=== PATIENT | female | born 1960 | race Caucasian/White ===

== ENCOUNTER 2019-03-14 08:27 | Inpatient (IN) ==
[2019-03-14] MEDS ORDERED: DUONEB (A & A) ONE (09:30)
[2019-03-14] MEDS: DUONEB (A & A) INH ONE (09:30)
--- NOTE | 2019-03-14 09:31 | PROVIDER DOCUMENTATION ---
HPI-Respiratory General - General Chief Complaint: Cough Stated Complaint: SOB / FLU SX Time Seen by Provider: 03/14/19 09:14 Source: patient Allergies/Adverse Reactions: Patient Allergies Allergy/AdvReac Type Severity Reaction Status Date / Time No Known Allergies Allergy Verified 03/14/19 10:05 Home Medications: Home Medication List Medication Instructions Recorded Confirmed Last Taken Type Alprazolam 0.5 mg PO QHS 03/14/19 03/14/19 03/13/19 History Losartan [Cozaar] 50 mg PO DAILY 03/14/19 03/14/19 03/14/19 History - History of Present Illness-Resp Nature of Presenting Problem: [id number] presents to the ER with c/o SOB, wheezing, and fever since yesterday. She is a PPD smoker. She reports a fever of 102.6 yesterday. Onset/Duration: reports: 24 hours ago Associated Symptoms: reports: cough, fever/chills, heart racing, shortness of breath. denies: chest pain/soreness Similar Symptoms Previously?: No Recently seen or treated by another doctor?: No Review of Systems - Adult - REVIEW OF SYSTEMS - ADULT Constitutional: reports: no symptoms reported, see HPI. denies: chills, fever Eyes: reports: no symptoms reported Ears, Nose, Mouth & Throat: reports: no symptoms reported Cardiovascular: reports: no symptoms reported. denies: chest pain, palpitations Respiratory: reports: see HPI, cough, dyspnea on exertion, shortness of breath, wheezing Gastrointestinal: reports: no symptoms reported Genitourinary: reports: no symptoms reported Musculoskeletal: reports: no symptoms reported Integumentary: reports: no symptoms reported Neurological: reports: no symptoms reported Psychiatric: reports: no symptoms reported Endocrine: reports: no symptoms reported Hematologic/Lymphatic: reports: no symptoms reported Allergic/Immunologic: reports: no symptoms reported All Other Systems: Reviewed and Negative Past History - Adult - PAST MEDICAL HISTORY-ADULT Review of Records: reports: Old Records Reviewed, Nursing Assessment Review, Medications Reviewed, Social history reviewed & non-contributory. Major Childhood Illnesses: reports: denies history Cardiovascular: reports: HTN, hyperlipidemia Respiratory: reports: denies history Gastrointestinal: reports: denies history Obstetrical/Gynecological: reports: denies history Genitourinary: reports: denies history Musculoskeletal: reports: denies history Neurological: reports: denies history Endocrine/Immune: reports: denies history Other Conditions: reports: denies history - IMMUNIZATION STATUS Childhood Immunizations: See Nurse Assessment Flu Vaccine: See Nurse Assessment - FAMILY HISTORY Family History: reviewed, not pertinent - SOCIAL HISTORY Smoking: cigarettes, greater than 1 pack/day Provider spent 3-5 mins advising pt. on dangers of tobacco.: Discussed manners to quit use, and f/u contacts for add'l counseling. Living Situation: family Physical Exam-General - CONSTITUTIONAL General Appearance: alert, moderate distress - EYES Eyes: PERRL/EOMI, pink conjunctivae - HEAD, EARS, NOSE, MOUTH & THROAT HENMT: moist mucous membranes, TMs normal - NECK Neck: full range of motion, supple - RESPIRATORY Respiratory: respiratory distress (tachypnea), decreased breath sounds, wheezing - CARDIOVASCULAR Cardiovascular: normal peripheral pulses, regular rate, rhythm, no edema - GASTROINTESTINAL (ABDOMEN) Abdominal Exam: non tender, soft - MUSCULOSKELETAL Back Exam: normal inspection Peripheral Pulses: radial (R): 2+, radial (L): 2+, dorsalis-pedis (R): 2+, dorsalis-pedis (L): 2+ - SKIN Integumentary: warm/dry - NEUROLOGIC Neurologic: grossly normal - PSYCHIATRIC Psych/Mental Status: oriented x 3 - HEART Score HEART Score: History: Slightly Suspicious HEART Score: ECG: Normal HEART Score: Age: < or = 45 Years HEART Score: Risk Factors for Atherosclerotic Disease: 1 or 2 Risk Factors HEART Score: Troponin: < or = Normal Limit Total HEART Score:: 1 Progress - PLAN OF CARE/RESULTS Progress/Plan/Lab Results: Vital Signs - 8 hr 03/14/19 08:30 03/14/19 09:31 Temperature 99.4 F Pulse Rate 126 H 121 H Respiratory Rate 28 H 22 Blood Pressure 161/105 O2 Sat by Pulse Oximetry 96 95 Laboratory Results - last 24 hr 03/14/19 03/14/19 03/14/19 09:10 09:10 09:10 WBC 31.91 H RBC 4.94 Hgb 14.8 Hct 44.1 MCV 89.3 MCH 30.0 MCHC 33.6 RDW Std Deviation 12.3 Plt Count 277 MPV 9.9 Immature Gran % (Auto) 0.8 H Neut % (Auto) 88.0 H Lymph % (Auto) 2.2 L [place] % (Auto) 7.8 Eos % (Auto) 1.1 Baso % (Auto) 0.1 Immature Gran # (Auto) 0.24 H Neut # (Auto) 28.09 H Lymph # (Auto) 0.70 L [place] # (Auto) 2.49 H Eos # (Auto) 0.35 Baso # (Auto) 0.04 PT 14.4 INR 1.06 PTT (Actin FS) 27.8 Sodium 138 Potassium 4.0 Chloride 103 Carbon Dioxide 22 L Anion Gap 13 BUN 11 Creatinine 0.5 Estimated GFR/1.73 m2 > 60 BUN/Creatinine Ratio 22 Glucose 141 H Calculated Osmolality 277 Calcium 9.2 Total Bilirubin 0.70 AST 18 ALT 16 Alkaline Phosphatase 106 H Creatine Kinase 77 Troponin T Total Protein 7.2 Albumin 4.3 Globulin 3.0 Albumin/Globulin Ratio 1.0 Plasma Lactate Urine Color Urine Clarity Urine pH Ur Specific [place] Urine Protein Urine Ketones Urine Blood Urine Nitrite Urine Bilirubin Urine Urobilinogen Urine WBC Urine Glucose 03/14/19 03/14/19 03/14/19 09:10 09:10 09:10 WBC RBC Hgb Hct MCV MCH MCHC RDW Std Deviation Plt Count MPV Immature Gran % (Auto) Neut % (Auto) Lymph % (Auto) [place] % (Auto) Eos % (Auto) Baso % (Auto) Immature Gran # (Auto) Neut # (Auto) Lymph # (Auto) [place] # (Auto) Eos # (Auto) Baso # (Auto) PT INR PTT (Actin FS) Sodium Potassium Chloride Carbon Dioxide Anion Gap BUN Creatinine Estimated GFR/1.73 m2 BUN/Creatinine Ratio Glucose Calculated Osmolality Calcium Total Bilirubin AST ALT Alkaline Phosphatase Creatine Kinase Troponin T < 0.010 Total Protein Albumin Globulin Albumin/Globulin Ratio Plasma Lactate 1.3 Urine Color PINK Urine Clarity VERY CLOUDY A Urine pH 6.5 Ur Specific [place] 1.020 Urine Protein 2+(100 mg/dL) A Urine Ketones 1+(Small) A Urine Blood 3+ A Urine Nitrite POSITIVE A Urine Bilirubin NEGATIVE Urine Urobilinogen 1 Urine WBC TRACE A Urine Glucose NEGATIVE Orders Category Date Time Status Cardiac Monitoring DIRECTED Care 03/14/19 08:37 Active Cardiac Monitoring DIRECTED Care 03/14/19 08:38 Active IV Insertion ORDERED Care 03/14/19 08:37 Completed IV Insertion ORDERED Care 03/14/19 08:38 Completed Notify MD of + Sepsis Screen NOW Care 03/14/19 08:37 Active Notify MD of + Sepsis Screen NOW Care 03/14/19 08:38 Active Notify Physician As Ordered Care 03/14/19 08:37 Active Notify Physician As Ordered Care 03/14/19 08:38 Active CHEST-1 VIEW [RAD] Stat Exams 03/14/19 08:37 Completed BLOOD CULTURE [BLDCUL] Stat Lab 03/14/19 09:11 Ordered CBC WITH DIFF [HEME] Stat Lab 03/14/19 09:10 Results CK PROFILE [SP CHEM] Stat Lab 03/14/19 09:10 Completed COMPREHENSIVE METABOLIC PANEL [CHEM] Stat Lab 03/14/19 09:10 Completed LACTATE, PLASMA [CHEM] Lab 03/14/19 09:10 Completed LACTATE, PLASMA [CHEM] Lab 03/14/19 11:45 Uncollected LACTATE, PLASMA [CHEM] Lab 03/14/19 14:45 Uncollected LACTATE, PLASMA [CHEM] Lab 03/14/19 14:45 Uncollected LACTATE, PLASMA [CHEM] Q3H Lab 03/14/19 11:45 Uncollected PROTIME WITH INR [COAG] Stat Lab 03/14/19 09:10 Completed PTT [COAG] Stat Lab 03/14/19 09:10 Completed TROPONIN T Stat Lab 03/14/19 09:[address] W/POSS RFLX CULT [URINALYSIS] Stat Lab 03/14/19 09:10 Results Albuterol 2.5MG/Ipratrop 0.5MG [Duoneb (A & A)] Med 03/14/19 09:19 Discontinued 3 ml INH NOW ONE Albuterol 2.5MG/Ipratrop 0.5MG [Duoneb (A & A)] Med 03/14/19 09:30 Discontinued 6 ml .ROUTE .STK-MED ONE Albuterol 2.5MG/Ipratrop 0.5MG [Duoneb (A & A)] Med 03/14/19 09:57 Discontinued 6 ml INH NOW ONE Aerosol Treatments Routine Oth 03/14/19 09:19 Completed Aerosol Treatments Stat Oth 03/14/19 09:19 Completed Aerosol Treatments Stat Oth 03/14/19 09:57 Completed Oxygen Device Stat Oth 03/14/19 08:37 Active Oxygen Device Stat Oth 03/14/19 08:38 Completed Result Diagrams: 03/14/19 09:10 03/14/19 09:10 - XRAY 1 XRAY Study: Chest Impression: Abnormal (COMMENT: There is slightly increased interstitial opacity bilaterally. The heart size and primary vascularity are within normal limits. There are no previous radiographs available for comparison. IMPRESSION: Mild interstitial pulmonary edema versus fibrosis.), See EMR Report - CONSULTS/PCP/HOSPITALIST Notification #1 *Consult/PCP/Hospitalist*: Dr Lopez Time Discussed: 10:23 Reason/Comments: Sepsis, Uti, pulmonary edema Consult Disposition: Admit Departure - Departure Date of Disposition Decision: 03/14/19 Time of Disposition Decision: 10:30 DIAGNOSIS: UTI (urinary tract infection) Qualifiers: Urinary tract infection type: site unspecified Hematuria presence: with hematuria Qualified Code(s): N39.0 - Urinary tract infection, site not specified; R31.9 - Hematuria, unspecified Leukocytosis Qualifiers: Leukocytosis type: unspecified Qualified Code(s): D72.829 - Elevated white blood cell count, unspecified Pulmonary edema Qualifiers: Chronicity: acute Qualified Code(s): J81.0 - Acute pulmonary edema Disposition: ADMITTED INPATIENT 09 Certified Medical Emergency: Emergent Condition: Critical Referrals and Follow-Ups: Todd Pelayo MD [Primary Care Provider] - - Critical Care Note This patient required my direct & personal management of CC.: Yes Total Time (mins): 21 Critical Care Statement: This patient required my direct personal management to treat or rule out processes, the absence of which, could potentiallly result in sudden, clinically significant life or limb threatening deterioration. Attestation - Physician/ JAIRO Attestation Patient care was provided by Advanced Practice Provider:: Yes Advanced Practice Provider:: Miguelangel White Advanced Practice Provider documentation review:: The Mid-level provider documentation, treatment plan and medical decision making was reviewed by the physician who agrees with all treatment and medical decision making by the [facility]. The physician spent face to face time with patient:: No Advanced Practice Provider documentation review:: Supervising physician onsite and consulted in the evaluation and care of this patient. The physician did not have a face to face encounter with the patient.
[2019-03-14 09:43] LABS: INR 1.06; PROTIME 14.4 Seconds (11.0-16.0)
[2019-03-14 09:44] LABS: PTT 27.8 Seconds (22.3-41.8)
[2019-03-14 09:48] LABS: CLARITY VERY CLOUDY (CLEAR); COLOR PINK
[2019-03-14 09:50] LABS: BASO# 0.04 X1000 (0.0-0.2); BASO% 0.1 % (0.0-0.8); BILIRUBIN URINE NEGATIVE (NEGATIVE); BLOOD URINE 3+ (NEGATIVE); EOS# 0.35 X1000 (0.0-0.7); EOS% 1.1 % (0.0-10.0); GLUCOSE URINE NEGATIVE (NEGATIVE); HEMATOCRIT 44.1 % (37.0-47.0); HEMOGLOBIN 14.8 g/dL (12.0-16.0); IMM GRAN# 0.24 X1000 (0.0-0.04); IMM GRAN% 0.8 % (0.0-0.5); KETONE URINE 1+(Small) mg/dL (NEGATIVE); LEUKOCYTES URINE TRACE (NEGATIVE); LYMPH% 2.2 % (20.5-51.1); MCHC 33.6 g/dL (33-37); MCV 89.3 FL (81-99); MONO# 2.49 X1000 (0.11-0.59); MONO% 7.8 % (1.7-9.3); MPV 9.9 FL (7.4-10.4); NEUT# 28.09 X1000 (1.4-6.5); NITRITE URINE POSITIVE (NEGATIVE); PH URINE 6.5; PLT 277 X1000 (130-400); PROTEIN URINE 2+(100 mg/dL) mg/dL (NEGATIVE); RBC 4.94 XMIL (4.2-5.4); RDW 12.3 % (11.5-14.5); UROBILINOGEN URINE 1 mg/dL; WBC 31.91 X1000 (4.8-10.8)
[2019-03-14] MEDS ORDERED: DUONEB (A & A) INH ONE (09:57)
[2019-03-14 10:00] LABS: AGAP 13; ALBUMIN 4.3 g/dL (3.5-5.0); ALKALINE PHOSPHATASE 106 U/L (32-104); BUN 11 mg/dL (8-22); CALCIUM 9.2 mg/dL (8.8-10.2); CHLORIDE 103 mmol/L (98-107); CK PROFILE 77 U/L (24-173); COSMO 277; CREATININE 0.5 mg/dL (0.5-0.9); ESTIMATED GFR > 60; GLUCOSE 141 mg/dL (70-104); GOT 18 U/L (10-30); GPT 16 U/L (10-36); SODIUM 138 mmol/L (136-145); TCO2 22 mmol/L (25-35); TOTAL PROTEIN 7.2 g/dL (6.3-8.3)
--- NOTE | 2019-03-14 10:21 | Diag Imaging Result Doc PS360 ---
EXAM: CHEST-1 VIEW 03/14/2019 HISTORY: sepsis TECHNIQUE: Erect AP portable at 1004 COMMENT: There is slightly increased interstitial opacity bilaterally. The heart size and primary vascularity are within normal limits. There are no previous radiographs available for comparison. IMPRESSION: Mild interstitial pulmonary edema versus fibrosis. Electronically signed by William oH 03/14/2019 10:18 AM
[2019-03-14 10:24] LABS: URINE BACTERIA 2+ /HFP; URINE EPITHELIAL CELLS <10 /HPF (<10); URINE RBC TNTC /HPF (<10)
[2019-03-14 10:25] LABS: URINE SOURCE CLEAN CATCH
[2019-03-14] MEDS ORDERED: ROCEPHIN 1 GM in NS 50 ML IV SCH (10:30)
[2019-03-14] MEDS ORDERED: LASIX IV ONE (10:31)
[2019-03-14 11:19] LABS: BANDS 2 % (0-1); LYMPHS 6 % (21-51); MONO 10 % (1-9); SEGS 82 % (42-75)
[2019-03-14] MEDS ORDERED: VANCOMYCIN IV PER PHARMACY MISC SCH (12:18)
[2019-03-14] MEDS: ZOSYN 3.375 GM in NS 50 ML IV SCH ×3 (12:22→22:25)
--- NOTE | 2019-03-14 12:52 | HISTORY AND PHYSICAL ---
PRIMARY CARE PROVIDER: Dr. Todd Alva. CHIEF COMPLAINT: Fever, shortness of breath. HISTORY OF PRESENT ILLNESS: Ms. Roberson is a 58-year-old, female who carries a past medical history of hypertension, edema, bronchitis, GERD, who came to the ED complaining of fever and chills. Her main complaint was her shortness of breath. She reported earlier in the week that she had went to see her PCP, was diagnosed with a urinary tract infection that she was trying to treat home with AZO, and was given Macrobid. Throughout the week, she continued to have a fever. Yesterday, her fever got up to over 102. She decided to come to the ED today secondary to not being able to breathe. Workup in the ED, chest x-ray showed mild interstitial pulmonary edema versus fibrosis and was given a dose of IV Lasix, placed on supplemental O2, and given 2 albuterol treatments, which she has had improvement. She was found to have a raging UTI and was initiated on Rocephin and Zosyn. She was found to have a white count of 31. She was afebrile but tachycardic with a negative lactate. Initially, she was tachypneic but since treatment, she is now breathing normally. We will go ahead and check a proBNP. No real history of heart failure per patient report, as well as treatment for her UTI. We will place her on broad spectrum antibiotics for at least 24 hours and await her urine culture as well. Blood cultures have been obtained. She has not received any IV fluid boluses secondary to pulmonary edema seen on the chest x-ray and improvement after IV Lasix and breathing treatments. Currently awaiting her proBNP. PAST MEDICAL HISTORY: 1. Hypertension. 2. Extremity edema. 3. Bronchitis. 4. Gastroesophageal reflux disease. 5. Obesity. PAST SURGICAL HISTORY: 1. Tubal ligation. 2. Cholecystectomy. 3. Uterine ablation. FAMILY HISTORY: Reviewed and noncontributory. SOCIAL HISTORY: She is a smoker. We did discuss smoking cessation as well as the means to quit. She does not have any immediate plans to stop at this time. ALLERGIES: No known drug allergies. HOME MEDICATIONS: 1. Xanax 0.5 mg p.o. at bedtime. 2. Cozaar 50 mg p.o. daily. PHYSICAL EXAMINATION: VITAL SIGNS: Temperature is 98.7 degrees, heart rate 123, respirations 20, blood pressure 138/69, O2 is 98% on 3 L nasal cannula. GENERAL: Ms. Roberson is a pleasant, 58-year-old, female who is sitting up in the bed, in no acute distress. HEENT: Atraumatic, normocephalic. PERRL. NECK: Supple. Trachea midline. CARDIOVASCULAR: S1, S2 appreciated. No murmurs, gallops, rubs noted. RESPIRATORY: Lung sounds clear bilaterally. GI: Soft, nontender, nondistended. Positive bowel sounds in 4 quadrants. EXTREMITIES: Lower extremities are negative for edema. NEUROLOGIC: No focal deficits noted. DIAGNOSTIC DATA: Chest x-ray, mild interstitial pulmonary edema versus fibrosis. LABORATORY DATA: White count 31, hemoglobin and hematocrit 14 and 44, platelet count is 277,000. Chemistry: Sodium 138, potassium 4.0, BUN 11, creatinine 0.5, blood glucose is 141. Troponin less than 0.010. First lactate was 1.3. Urinalysis, 2+ bacteria, trace WBCs, too numerous to count RBCs, positive for nitrites, 3+ blood, 1+ ketones, 2 protein. ASSESSMENT AND PLAN: 1. Urinary tract infection versus pyelonephritis. We will get a CT of the abdomen and pelvis. We will continue on broad-spectrum antibiotics with vancomycin and Zosyn. Given the patient's high white count and failed outpatient treatment for urinary tract infection that has been ongoing now for a couple of weeks, we will initiate her on some low-dose intravenous fluids. 2. Dyspnea. The patient does not claim any history of congestive heart failure or chronic obstructive pulmonary disease. However, a chest x-ray shows pulmonary edema versus pulmonary fibrosis. She was given a dose of intravenous Lasix as well as breathing treatments in the emergency department and started on supplemental oxygen with improvement. We will check a proBNP. 3. Hypertension. We will continue home Cozaar. 4. Leukocytosis secondary to #1. 5. Tachycardia secondary to illness. We will monitor on telemetry. 6. Fever. We will do a flu swab as she was having body aches and chills throughout the week. However, she did receive the flu vaccine, I believe earlier in the week, and is positive for a urinary tract infection and was noted to have some costovertebral angle tenderness. Again, we are going to rule out pyelonephritis with a CT. 7. Further recommendations to follow physician evaluation, laboratory and diagnostic data. Dictated by NADEEM Cazares for Yariel Lopez MD cc: Yariel Lopez MD
[2019-03-14 13:26] LABS: INFLUENZA A NEGATIVE (NEGATIVE); INFLUENZA B NEGATIVE (NEGATIVE)
[2019-03-14] MEDS ORDERED: VANCOMYCIN 2,100 MG in NS 500 ML IV ONE (14:00)
[2019-03-14] MEDS: NS 1,000 ML IV SCH (14:18)
--- NOTE | 2019-03-14 14:28 | Diag Imaging Result Doc PS360 ---
EXAM: CT ABDOMEN/PELVIS W/O CONTRAST 03/14/2019 HISTORY: r/o pyleo TECHNIQUE: This exam was performed using automated exposure control, adjustment of mA or kV according to patient size, and/or use of iterative reconstruction technique. COMMENT: There are bilateral pleural effusions. There are no previous studies. There are patchy opacities and interstitial opacities in the lung bases consistent with pulmonary edema. There is no evidence of hydronephrosis or nephrolithiasis. There has been cholecystectomy. There is no evidence of bowel obstruction. There are some diverticula in the descending colon and sigmoid without evidence of diverticulitis. The appendix is normal in appearance. There is no evidence of free fluid. The urinary bladder is not distended. There is a bone island in the left iliac bone medially. No acute bony abnormalities are present. IMPRESSION: No evidence of stones or obstruction. Diverticulosis. Electronically signed by William Ho 03/14/2019 2:25 PM
[2019-03-14] MEDS: XOPENEX NEB INH PRN ×3 (15:38→23:15)
--- NOTE | 2019-03-14 16:33 | HISTORY AND PHYSICAL ---
HISTORY OF PRESENT ILLNESS: Patient presented to the hospital noting that she has an increased work of breathing, cough, congestion, shortness of breath. By the time we had seen her in the ER, she noted her breathing was tremendously better. She had been given several breathing treatments in the ER. She does note that she had a urinary infection earlier in the week and was given Macrobid. Currently, her white count is 31. It certainly appears as though her urine may not have been treated with Macrobid. We are going to admit her to the hospital for pyelonephritis, sepsis, and we will follow. We will continue breathing treatments as needed. Please see full note. cc: Yariel Lopez MD
[2019-03-14] MEDS: XANAX PO SCH (22:25)
[2019-03-15] MEDS ORDERED: VANCOMYCIN 1,650 MG in NS 250 ML IV SCH (02:00)
[2019-03-15] MEDS: ZOSYN 3.375 GM in NS 50 ML IV SCH ×4 (06:14→22:54)
[2019-03-15 06:31] LABS: BASO# 0.02 X1000 (0.0-0.2); BASO% 0.1 % (0.0-0.8); EOS# 0.89 X1000 (0.0-0.7); EOS% 5.8 % (0.0-10.0); HEMATOCRIT 36.2 % (37.0-47.0); HEMOGLOBIN 11.8 g/dL (12.0-16.0); IMM GRAN# 0.05 X1000 (0.0-0.04); IMM GRAN% 0.3 % (0.0-0.5); LYMPH# 1.16 X1000 (1.2-3.4); LYMPH% 7.5 % (20.5-51.1); MCH 29.7 PG (27-31); MCHC 32.6 g/dL (33-37); MCV 91.2 FL (81-99); MONO# 1.17 X1000 (0.11-0.59); MONO% 7.6 % (1.7-9.3); NEUT# 12.13 X1000 (1.4-6.5); NEUT% 78.7 % (42.2-75.2); PLT 211 X1000 (130-400); RBC 3.97 XMIL (4.2-5.4); RDW 12.4 % (11.5-14.5); WBC 15.42 X1000 (4.8-10.8)
[2019-03-15 06:49] LABS: ALBUMIN 3.3 g/dL (3.5-5.0); CALCIUM 7.6 mg/dL (8.8-10.2); CREATININE 2.3 mg/dL (0.5-0.9); POTASSIUM 3.3 mmol/L (3.5-5.1); TOTAL BILIRUBIN 0.7 mg/dL (0.20-1.00); TOTAL PROTEIN 6.2 g/dL (6.3-8.3)
[2019-03-15] MEDS: NS 1,000 ML IV SCH (07:03)
--- NOTE | 2019-03-15 07:22 | Diag Imaging Result Doc PS360 ---
EXAM: CHEST-2 VIEWS HISTORY: SOB TECHNIQUE: Two views COMPARISON: 03/14/2019 FINDINGS: The lungs are hyperexpanded. No cardiomegaly. Mild increased interstitial markings. No consolidation. Tiny effusions. IMPRESSION: Mild pulmonary edema versus fibrosis Electronically signed by Trevor Rodriguez 03/15/2019 7:19 AM
[2019-03-15] MEDS: XOPENEX NEB INH PRN ×3 (08:12→15:40)
[2019-03-15] MEDS: COZAAR PO SCH (08:23)
[2019-03-15] MEDS ORDERED: HYDROCORTISONE 1% CREAM TOP PRN (08:29)
[2019-03-15] MEDS: BENADRYL PO PRN (18:42)
[2019-03-15] MEDS: XANAX PO SCH (22:53)
--- NOTE | 2019-03-15 23:34 | PROGRESS NOTE ---
DATE: 03/15/2019 SUBJECTIVE: Patient notes that she is feeling a lot better, a lot less work of breathing. Denies any fevers or chills. Denies any cough. PHYSICAL: Temperature 98 degrees, pulse 97, respiratory rate 18, BP 127/60.General: Patient is awake, alert, currently in no respiratory distress. HEENT: Normocephalic. Neck: Supple. Cardiovascular: Regular rate. No murmurs. Chest: Much improved air movement. Minimal wheezing, no crackles. Abdomen: Soft, nondistended, nontender. Extremities: Moves all extremities. ASSESSMENT: 1. Leukocytosis. White count dropped from 31 to 15. 2. Urinary tract infection most likely pyelonephritis. 3. Dyspnea on exertion. 4. Hypertension. 5. Tachycardia resolved. 6. Fever resolved. PLAN: Patient currently is on vancomycin and Zosyn until she has culture and sensitivity. Will continue to follow. She is improving. Hopefully, if sensitivities to her culture allow it she can possibly be discharged tomorrow if her symptoms continue to improve. cc: Yariel Lopez MD
[2019-03-16] MEDS: ZOSYN 3.375 GM in NS 50 ML IV SCH (04:40)
[2019-03-16 06:09] LABS: HEMATOCRIT 35.5 % (37.0-47.0); HEMOGLOBIN 11.7 g/dL (12.0-16.0); MCH 29.8 PG (27-31); MCV 90.6 FL (81-99); MPV 9.7 FL (7.4-10.4); RBC 3.92 XMIL (4.2-5.4); RDW 12.2 % (11.5-14.5); WBC 12.37 X1000 (4.8-10.8)
[2019-03-16 06:30] LABS: ALBUMIN 3.2 g/dL (3.5-5.0); CALCIUM 7.6 mg/dL (8.8-10.2); CREATININE 4.3 mg/dL (0.5-0.9); POTASSIUM 3.4 mmol/L (3.5-5.1); TOTAL BILIRUBIN 0.4 mg/dL (0.20-1.00); TOTAL PROTEIN 6.3 g/dL (6.3-8.3)
[2019-03-16] MEDS: XOPENEX NEB INH PRN ×2 (08:04→15:40)
[2019-03-16] MEDS: COZAAR PO SCH (08:37)
[2019-03-16] MEDS ORDERED: IMODIUM PO PRN (10:46)
[2019-03-16] MEDS: NS 1,000 ML IV SCH (10:53)
[2019-03-16 11:27] LABS: UR CREAT RANDOM 57.9 mg/dL (11-20)
[2019-03-16] MEDS ORDERED: NS 1,000 ML IV ONE (12:23)
[2019-03-16] MEDS: ROCEPHIN 1 GM in NS 50 ML IV SCH (18:40)
[2019-03-16 20:16] LABS: OCCULT BLOOD 1 NEGATIVE (NEGATIVE)
[2019-03-16] MEDS: XANAX PO SCH (21:58)
[2019-03-17] MEDS: NS 1,000 ML IV SCH ×3 (01:28→22:13)
[2019-03-17] MEDS: BENADRYL PO PRN (01:41)
[2019-03-17 05:57] LABS: BASO# 0.03 X1000 (0.0-0.2); BASO% 0.3 % (0.0-0.8); EOS# 1.22 X1000 (0.0-0.7); EOS% 10.5 % (0.0-10.0); HEMATOCRIT 33.4 % (37.0-47.0); HEMOGLOBIN 10.8 g/dL (12.0-16.0); IMM GRAN# 0.03 X1000 (0.0-0.04); IMM GRAN% 0.3 % (0.0-0.5); LYMPH# 1.77 X1000 (1.2-3.4); LYMPH% 15.3 % (20.5-51.1); MCH 29.5 PG (27-31); MCHC 32.3 g/dL (33-37); MCV 91.3 FL (81-99); MONO# 1.25 X1000 (0.11-0.59); MONO% 10.8 % (1.7-9.3); MPV 9.9 FL (7.4-10.4); NEUT# 7.29 X1000 (1.4-6.5); NEUT% 62.8 % (42.2-75.2); PLT 202 X1000 (130-400); RBC 3.66 XMIL (4.2-5.4); RDW 12.2 % (11.5-14.5); WBC 11.59 X1000 (4.8-10.8)
[2019-03-17 06:28] LABS: CALCIUM 7.1 mg/dL (8.8-10.2); POTASSIUM 3.4 mmol/L (3.5-5.1)
[2019-03-17 06:48] LABS: CREATININE 5.3 mg/dL (0.5-0.9)
[2019-03-17 14:12] LABS: BILIRUBIN URINE NEGATIVE (NEGATIVE); BLOOD URINE TRACE (NEGATIVE); CLARITY CLEAR (CLEAR); COLOR YELLOW; GLUCOSE URINE NEGATIVE (NEGATIVE); KETONE URINE NEGATIVE (NEGATIVE); LEUKOCYTES URINE NEGATIVE (NEGATIVE); NITRITE URINE NEGATIVE (NEGATIVE); PH URINE 6.5; PROTEIN URINE 1+(30 mg/dL) mg/dL (NEGATIVE); UROBILINOGEN URINE NORMAL
[2019-03-17 14:13] LABS: URINE BACTERIA NEGATIVE /HFP; URINE CAST NONE SEEN /LPF; URINE CRYSTAL NONE SEEN /HPF; URINE EPITHELIAL CELLS >10 /HPF (<10); URINE RBC <10 /HPF (<10); URINE SOURCE CLEAN CATCH; URINE WBC <10 /HPF (<10); URINE YEAST NONE SEEN /HPF
--- NOTE | 2019-03-17 14:19 | Diag Imaging Result Doc PS360 ---
US RENAL 2 (RETROPER) COMPLETE - 03/17/2019 INDICATION: yon/arf TECHNIQUE: COMPARISON: CT from 03/14/2019 FINDINGS: The kidneys and urinary bladder are normal. The right kidney measures 12.9 x 5.5 x 5.6 cm. The left kidney measures 13.7 x 5.1 x 6.1 cm. Urinary bladder is filled with clear urine. IMPRESSION: Negative exam. Electronically signed by Fredy Harrison 03/17/2019 2:17 PM
[2019-03-17] MEDS: XOPENEX NEB INH PRN (15:53)
[2019-03-17] MEDS: ROCEPHIN 1 GM in NS 50 ML IV SCH (17:20)
[2019-03-17] MEDS ORDERED: TYLENOL PO ONE (19:04)
[2019-03-17] MEDS ORDERED: DIFLUCAN PO ONE (19:05)
[2019-03-17] MEDS: XANAX PO SCH (21:41)
[2019-03-17] MEDS ORDERED: TYLENOL PO PRN (22:25)
--- NOTE | 2019-03-17 22:50 | NEPHROLOGY CONSULTATION ---
DATE: 03/17/2019 REASON FOR CONSULTATION: Acute kidney injury. HISTORY OF PRESENT ILLNESS: Ms Roberson is a 58-year-old, white female who came to the hospital on 03/14 because of acute shortness of breath. She has been dealing with possible UTI at home and had taken Azo and nitrofurantoin. She began having fever, cough, wheezing. Temperature was 102.6 degrees at home. She presented to the emergency room and was treated with IV antibiotics. She was not given boluses of IV fluids because she had some evidence of pulmonary edema on the x-ray. Her renal function was normal on presentation. She received no nonsteroidal's or IV contrast. She did receive vancomycin and Zosyn initially. Again, initial creatinine was 0.5 and has risen progressively to 5.3 today. She is still making urine and describes normal appearance. No blood in her urine. No change in volume by her estimation. She states she is feeling some better. She has been anorexic and nauseated, but she did eat today. No further chills, fever, sweats, night sweats, etc. PAST MEDICAL HISTORY: Hypertension, COPD. HOME MEDICATIONS: Losartan, alprazolam, omeprazole, naproxen. ALLERGIES: Vancomycin. SOCIAL HISTORY: Smoker, ongoing. No alcohol. FAMILY HISTORY: Otherwise noncontributory. REVIEW OF SYSTEMS: Otherwise noncontributory. PHYSICAL EXAMINATION: Vital Signs: Blood pressure 173/82, heart rate 86, respirations 20, T-max 99.1 degrees. Generally: Healthy appearing, middle-aged woman, no acute distress. Skin: Warm and dry with diffuse maculopapular pink rash and also bruises. ENT: Conjunctivae are pink and moist. Pupils equal, round. Oropharynx clear. Neck: Supple. Trachea is midline. Neck veins are not distended. Heart: PMI nondisplaced. Regular rate and rhythm. No murmurs, rubs, or gallops. Lungs: Have equal excursion. Equal breath sounds. Decreased in the bases, a few crackles. Abdomen: Soft, nontender. Bowel sounds present. No organomegaly. Extremities: No edema, clubbing or cyanosis. IMPRESSION: Acute kidney injury. Acute tubular necrosis would be most likely statistically. Certainly, is at risk for interstitial nephritis given her rash. She was changed from a penicillin to a cephalosporin, which should not have cross-reactivity. She is receiving fluids overnight. We will continue to observe. I counseled her that she may require kidney biopsy. cc: Ke Jose MD
[2019-03-18 06:01] LABS: HEMATOCRIT 32.7 % (37.0-47.0); HEMOGLOBIN 10.4 g/dL (12.0-16.0); MCH 29.5 PG (27-31); MCHC 31.8 g/dL (33-37); MCV 92.6 FL (81-99); MPV 9.3 FL (7.4-10.4); RBC 3.53 XMIL (4.2-5.4); RDW 12.5 % (11.5-14.5); WBC 11.96 X1000 (4.8-10.8)
[2019-03-18 06:30] LABS: CREATININE 5.3 mg/dL (0.5-0.9); POTASSIUM 3.5 mmol/L (3.5-5.1)
[2019-03-18] MEDS: NS 1,000 ML IV SCH ×2 (07:45→13:13)
[2019-03-18] MEDS: XOPENEX NEB INH PRN ×3 (08:12→20:34)
[2019-03-18] MEDS ORDERED: CALCIUM GLUCONATE IV PUSH ONE (09:44)
[2019-03-18] MEDS ORDERED: CALCIUM GLUCONATE 1 GM in NS 100 ML IV ONE (10:00)
--- NOTE | 2019-03-18 14:46 | Diag Imaging Result Doc PS360 ---
EXAM: CHEST-2 VIEWS 03/18/2019 HISTORY: Wheezes and crackles TECHNIQUE: PA and lateral chest COMMENT: There has been some slight improvement in the interstitial opacity in the lung bases since the previous study of 03/15/2019. There is still blunting of the left costophrenic angle both anteriorly and posteriorly. The heart size is at the upper limits of normal. IMPRESSION: Pulmonary edema. Left pleural effusion. Electronically signed by William Ho 03/18/2019 2:43 PM
--- NOTE | 2019-03-18 14:49 | NEPHROLOGY PROGRESS NOTE ---
DATE: 03/18/2019 Subjective: patient lying in bed awake talking on her cell phone. She voices 2 IV infiltrations during the night. No uriemic complaints noted. Objective: vitals. Temperature 98.7, pulse 80, respirations 20, blood pressure 145/73, 02 sat 96% on room air. General: Obese male lying in bed in no acute distress HEENT: Normocephalic, atraumatic. Trachea midline. Pupils equal and reactive to light. Dry membranes. Skin: warm, dry and intact. Neck: Supple, 6 cm JVD. Cardiovascular: S1, S2. no murmurs or gallops. Respiratory: scattered rhonchi throughout posteriorly. Accessory muscle use. Abdomen: soft, obese, non tender, distended. Bowel sounds present. : non-inspected. Grajeda in place. Extremities: no clubbing or cyanosis. Trace pitting Edema to bilateral upper and lower extremities Neurological: Drowsy, oriented to person, place, and time Labs: WBC 11.96, hemoglobin 10.4, hematocrit 32.7, platelet count to 12, sodium 142, potassium 3.5, chloride 113, carbon dioxide 17, anion gap 12, BUN 25, creatinine 5.3, calcium 7.0, intake 2640, output 700. Impression: Acute kidney injury. Likely ATN. Less likely AIN from penicillin. Creatinine did not rise today, we will continue fluids and observe. Metabolic acidosis. Modest. No treatment. cc: Ke Jose MD MTDD
[2019-03-18] MEDS: ROCEPHIN 1 GM in NS 50 ML IV SCH (17:04)
[2019-03-18] MEDS: XANAX PO SCH (20:26)
[2019-03-19] MEDS: NS 1,000 ML IV SCH (04:09)
[2019-03-19 07:03] LABS: HEMATOCRIT 29.6 % (37.0-47.0); HEMOGLOBIN 9.5 g/dL (12.0-16.0); MCH 29.7 PG (27-31); MCHC 32.1 g/dL (33-37); MCV 92.5 FL (81-99); MPV 9.9 FL (7.4-10.4); RBC 3.2 XMIL (4.2-5.4); RDW 12.4 % (11.5-14.5); WBC 10.4 X1000 (4.8-10.8)
[2019-03-19 07:23] LABS: CALCIUM 7.3 mg/dL (8.8-10.2); POTASSIUM 3.4 mmol/L (3.5-5.1)
[2019-03-19 07:27] LABS: CREATININE 5.4 mg/dL (0.5-0.9)
[2019-03-19 07:43] VITALS: BP 158/74
[2019-03-19] MEDS: XOPENEX NEB INH PRN (08:14)
--- NOTE | 2019-03-19 20:46 | NEPHROLOGY PROGRESS NOTE ---
DATE: 03/19/2019 SUBJECTIVE: She is feeling well. No complaints. Good urine output. OBJECTIVE: Vital Signs: Blood pressure 158/74, heart rate 75, respirations 20, afebrile. General: No acute distress. Skin: Warm and dry. Heart: Regular. Lungs: Equal. No crackles. Abdomen: Soft. Extremities: Have no edema. IMPRESSION: Acute kidney injury. No recovery, but seems to have plateaued. I expect that acute tubular necrosis is her diagnosis. There is still some possibility of acute tubular necrosis. We will have her come on Friday morning early for repeat labs. If no improvement, we will plan for biopsy. cc: Ke Jose MD
--- NOTE | 2019-03-19 21:25 | DISCHARGE SUMMARY ---
ADMISSION DATE: 03/14/2019 DISCHARGE DATE: 03/19/2019 PRIMARY CARE PHYSICIAN: Dr. Todd Alva. CONSULTATIONS: Nephrology. ADMISSION DIAGNOSES: 1. Urinary tract infection versus pyelonephritis. 2. Dyspnea. 3. Hypertension. 4. Leukocytosis secondary to #1. 5. Tachycardia secondary to illness. 6. Fever. DISCHARGE DIAGNOSIS: 1. Acute urinary tract infection with urine culture mixed chapito. 2. Acute kidney injury that is likely an acute interstitial nephritis or an acute tubular necrosis nephrology following outpatient and may require a renal biopsy if symptoms and labs do not improve. SUMMARY OF FINDINGS: This is a 58-year-old female who came to the emergency room with fever, chills, shortness of breath had been diagnosed earlier that week by her primary care physician with a urinary tract infection was being treated with Macrobid and Azo. Her fever went up to 102 so she came into the emergency room was having some shortness of breath and was noted on her chest x-ray to have interstitial pulmonary edema versus fibrosis so she was found to have a urinary tract infection but the culture showed mixed chapito. Her creatinine went up on 03/15/2019 to 2.3 and on 03/16 to 4.3. She was noted to be on vancomycin and had allergic reaction to that and it is felt that she probably had some acute interstitial nephritis and we consulted Nephrology who has been following this patient and is going to follow up next week with labs and may require a renal biopsy if it does not improve. No treatment at this time is needed and it is felt that she can safely be discharged home today. Again she will have a basic metabolic panel done on 04/05/2019. DISCHARGE MEDICATIONS: Of her albuterol nebulizer q.6 hours. FOLLOWUP: She will follow up with her primary care physician in the next 1 to 2 weeks and then she will also schedule an appointment with Dr. Jose, Nephrology and call their office for an appointment. All discharge instructions have been reviewed with the patient and she verbalized understanding. TIME SPENT: 35 minutes. Dictated by NADEEM Ewing for Navarro Manrique MD cc: MD Navarro Soria MD
== END 2019-03-19 13:10 | disposition home or self-care (01) | DRG 689 ==
LOC: P.ED 08:27 → SUATTDRO 08:28 → P.MEDSURG 10:46
PROVIDERS: ATTEND Internal Medicine